=== PATIENT | male | born 1965 | race Caucasian/White ===

== ENCOUNTER 2016-11-03 19:08 | Emergency (ER) | payer BC ==
--- NOTE | 2016-11-08 01:31 | ER ---
ADMIT: 11/03/2016 RM/LOC: ER [facility] MR#: [id number] [address] [place], [place] [id number] JEFFREY BAUTISTA [address] [place] [id number] Emergency Room Report SEX: M AGE: 51 : 1965 DATE: 11/03/2016 See T-sheet for complete H and P. ADDENDUM: A 51-year-old male, comes in with shortness of breath and feeling lightheaded. This began shortly before arrival. He does have a history of smoking for 35 years. He does not carry a diagnosis of COPD. On physical exam, he does have some wheezes and rhonchi noted initially. He has a breathing treatment done and his wheezing has improved, is still slightly rhonchorous. Chest x-ray shows nothing acute. I did check CBC, which shows a white count of 12.0, otherwise negative. Chemistries are normal. BNP was 29, and troponin less than 0.015. CT angio chest was done, which reveals no PE. The patient was feeling better and he will be discharged home on albuterol inhaler, prednisone b.i.d. for 5 days, and a Z-Rich. He is to call Dr. Coy's office tomorrow to arrange for followup next week and return to the ER for any other concerning symptoms. DIAGNOSES: 1. Short of breath. 2. Chronic obstructive pulmonary disease. Jeffrey Onofre MD/ aria JOB #: [id number] CC: Jeffrey Onofre MD, Attending Physician Sadiq Coy MD, Family Physician
== END 2016-11-03 21:45 | disposition home or self-care (01) ==
LOC: ER 19:08
DX: J44.9 Chronic obstructive pulmonary disease, unspecified (principal); I10 Essential (primary) hypertension; F17.210 Nicotine dependence, cigarettes, uncomplicated; Z79.899 Other long term (current) drug therapy